=== PATIENT | male | born 1995 | race Caucasian/White ===

== ENCOUNTER 2016-12-11 21:54 | Emergency (ER) | payer BC ==
[~2016-12-11] VITALS: Ht 188 cm; Wt 88.9 kg
[2016-12-11 21:58] VITALS: Ht 188 cm; Wt 88.9 kg
[2016-12-11] MEDS ORDERED: ACET-1256 PO (22:41)
[2016-12-11] MEDS ORDERED: ACETAMINOPHEN 500 MG TAB PO STA (22:54)
--- NOTE | 2016-12-11 22:55 | EMERGENCY ROOM VISIT NOTE ---
History Report prepared by Malaibdianne: Ab Carter Under the Supervision of: Dr. Antonio Valentin D.O. First contact with patient: 22:50 Chief Complaint: FLU LIKE SX Stated Complaint: CHEST PAIN,OFF AND ON WEAK MUSCLES,SORE THROAT History of Present Illness The patient is a 20 year old male who presents to the Emergency Room with complaints of constant chest "pressure" beginning three days ago. He also complains of a productive cough and sore throat. He states that his cough produces a green sputum. The patient denies any shortness of breath. He notes that he returned from [place] a few days ago. He did not have a flu shot this year. Source of History: patient Onset: Three days ago Position: chest Quality: pressure Timing: constant Associated Symptoms: + cough, + sorethroat, No SOB Review of Systems See HPI for pertinent positives and negatives. A total of ten systems were reviewed and were otherwise negative. Past Medical & Surgical Medical Problems: (1) No Known Active Medical Problems Family History No pertinent family history stated. Social History Smoking Status: Never Smoker Occupation Status: [employer] Current/Historical Medications Scheduled PRN Acetaminophen (Tylenol), 500 MG PO UD PRN for Pain or Fever Allergies Coded Allergies: No Known Allergies (Unverified , 12/11/16) Physical Exam Vital Signs Date Time Temp Pulse Resp B/P Pulse Ox O2 Delivery O2 Flow Rate FiO2 12/11/16 23:42 90 18 137/77 99 Room Air 12/11/16 21:58 38.1 106 20 145/70 97 Room Air Physical Exam GENERAL: Awake, alert, well-appearing, in no distress HENT: Normocephalic, atraumatic. Oropharynx unremarkable. EYES: Normal conjunctiva. Sclera non-icteric. NECK: Supple. No nuchal rigidity. FROM. No JVD. RESPIRATORY: Clear to auscultation. CARDIAC: Regular rate, normal rhythm. Extremities warm and well perfused. Pulses equal. ABDOMEN: Soft, non-distended. No tenderness to palpation. No rebound or guarding. No masses. RECTAL: Deferred. MUSCULOSKELETAL: Chest examination reveals no tenderness. The back is symmetrical on inspection without obvious abnormality. There is no CVA tenderness to palpation. No joint edema. LOWER EXTREMITIES: Calves are equal size bilaterally and non-tender. No edema. No discoloration. NEURO: Normal sensorium. No sensory or motor deficits noted. SKIN: No rash or jaundice noted. Medical Decision & Procedures ER Provider Diagnostic Interpretation: One View Chest X-ray interpreted by me: Negative for acute injury. Laboratory Results Test 12/11/16 23:04 Influenza Type A Antigen Neg for Influ A (NEG) Influenza Type B Antigen Neg for Influ B (NEG) Laboratory results reviewed by me Medications Administered Medications (Trade) Dose Ordered Sig/Han Route Start Time Stop Time Status Last Admin Dose Admin Acetaminophen (Tylenol Tab) 1,000 mg NOW STAT PO 12/11/16 22:54 12/11/16 22:56 DC 12/11/16 23:02 1,000 MG ED Course 2251: The patient was evaluated in room A4B. A complete history and physical exam was performed. 2254: Ordered Tylenol Tab 1000 mg PO. 2345: I reevaluated the patient. Discussed results and discharge instructions: he verbalized understanding and agreement. The patient is ready for discharge. Medical Decision Differential diagnoses include but are not limited to; bronchitis, URI, pneumonia, and viral syndrome. 2339: patient resting in no distress, discussed the patient at bedside we'll treat him for acute bronchitis. Patient's chest x-ray as interpreted by me is negative for infiltrate. Patient's influenza screen is negative as well Impression Primary Impression: Acute bronchitis Scribe Attestation The scribe's documentation has been prepared under my direction and personally reviewed by me in its entirety. I confirm that the note above accurately reflects all work, treatment, procedures, and medical decision making performed by me. Departure Information Dispostion Home / Self-Care Prescriptions Azithromycin (ZITHROMAX Z-BRAULIO) 250 Mg Tab 0 PO UD, #1 PKT Prov: Antonio Valentin, DO 12/11/16 Patient Instructions Bronchitis Acute, My [facility] Additional Instructions Follow-up with primary care physician one to 2 days, take antibiotic as prescribed. Return for worsening of symptoms or any concerns Problem Qualifiers Primary Impression: Acute bronchitis Bronchitis organism: unspecified organism Qualified Codes: J20.9 - Acute bronchitis, unspecified
[2016-12-11 23:42] VITALS: BP 137/77; PULSE 90; O2SAT 99
[2016-12-11] MEDS ORDERED: AZITTAB PO (23:44)
[2016-12-11 23:52] VITALS: TEMP 37.5
--- NOTE | 2016-12-12 06:29 | DIAGNOSTIC IMAGING REPORT ---
CHEST ONE VIEW PORTABLE CLINICAL HISTORY: cough dyspnea COMPARISON STUDY: No previous studies for comparison. FINDINGS: The bones soft tissues and hemidiaphragms are normal. The cardiomediastinal silhouette is normal. The lungs are clear. The pulmonary vasculature is normal. IMPRESSION: Negative chest. Electronically signed by: Agustín Kohler M.D. 12/12/2016 6:28 AM Dictated Date/Time: 12/12/2016 6:28 AM
== END 2016-12-11 23:53 | disposition home or self-care (01) ==
LOC: C.EDB 21:57 → C.EDA 23:53
DX: J20.9 Acute bronchitis, unspecified (principal)